=== PATIENT | female | born 1980 | race Caucasian/White ===

== ENCOUNTER → 2017-01-02 | Outpatient (CLI) | payer BC ==
[~2017-01-02] MED LIST: AMIT50TA3 PO; CHOL100040 PO
--- NOTE | 2017-01-02 16:01 | DIAGNOSTIC IMAGING REPORT ---
ULTRASOUND OF THE PELVIS CLINICAL HISTORY: Pelvic pain. Irregular menses. COMPARISON STUDY: No priors. TECHNIQUE: Real-time, grayscale, and color flow sonography of the pelvis is performed both transabdominally and endovaginally. Images are reviewed in the transverse and longitudinal planes. FINDINGS: Uterus: The uterus is normal in size and echotexture, measuring 10.4 x 3.0 x 5.3 cm. Nabothian cysts are noted in the cervix. Trace fluid is noted within the endocervical canal. Endometrium: The endometrium is normal in appearance, and the endometrial stripe is normal in thickness measuring up to 1.0 cm. Ovaries: The ovaries are normal in size and morphology. The ovaries were only seen transabdominally. The right ovary measures 2.4 x 1.6 x 1.9 cm and the left ovary measures 3.0 x 2.0 x 2.4 cm. A 1.5 cm dominant follicle is noted on the left. Normal Doppler waveforms are shown within both ovaries. Pelvis: There is no free fluid in the cul-de-sac. No concerning adnexal lesion is seen. IMPRESSION: No acute sonographic abnormality is identified in the pelvis. Electronically signed by: Leif Sheehan M.D. 01/02/2017 3:59 PM Dictated Date/Time: 01/02/2017 3:57 PM
== END | disposition home or self-care (01) ==
LOC: C.ULTR 15:00
PROVIDERS: ATTEND Physician Assistant
DX: R10.31 Right lower quadrant pain (principal)